=== PATIENT | female | born 1980 | race Asian ===

== ENCOUNTER 2024-05-16 03:27 | Emergency (ER) | payer SELFPAY ==
[~2024-05-16] VITALS: Ht 152.4 cm; Wt 112.4 kg
[2024-05-16 03:46] VITALS: O2SAT 100
[2024-05-16 03:54] VITALS: BP 101/66; PULSE 80; RESP 18; TEMP 98.5; O2SAT 98
== END 2024-05-16 06:09 | disposition left against medical advice (07) ==
LOC: ER 03:27
DX: R51.9 Headache, unspecified (principal); I10 Essential (primary) hypertension; Z98.890 Other specified postprocedural states; Z53.21 Procedure and treatment not carried out due to patient leaving prior to being seen by health care provider